=== PATIENT | male | born 1980 | race Caucasian/White ===

== ENCOUNTER 2021-11-07 14:04 | Observation (INO) | payer BC, SELFPAY ==
[2021-11-07] MEDS ORDERED: Fentanyl 100 MCG/2 ML VIAL ONE ×2 (14:31→18:08)
[2021-11-07] MEDS ORDERED: Ondansetron ODT 4 MG TAB PO PRN (15:13)
[2021-11-07] MEDS ORDERED: Cyclobenzaprine 10 MG TAB PO PRN (15:13)
[2021-11-07] MEDS ORDERED: traMADol HCl 50 MG TAB PO PRN (15:13)
[2021-11-07] MEDS ORDERED: Morphine 2 MG/ML VIAL SLOW IVP PRN (15:13)
[2021-11-07] MEDS ORDERED: fentaNYL Citrate/PF 100 MCG/2 ML SYRINGE ONE (15:51)
[2021-11-07] MEDS ORDERED: HYDROmorphone 0.5 MG/0.5 ML SYRINGE ONE (15:55)
[2021-11-07] MEDS ORDERED: Midazolam HCl 2 mg/2 ml Vial ONE (15:55)
[2021-11-07] MEDS ORDERED: Bupivacaine/Epinephrine 0.25% 30 ML VIAL ONE (15:57)
[2021-11-07] MEDS ORDERED: Dexamethasone 20 MG/5 ML VIAL ONE (16:25)
[2021-11-07] MEDS ORDERED: PROPOFOL 200 MG/20 ML VIAL ONE (16:25)
[2021-11-07] MEDS ORDERED: Rocuronium Bromide 10 MG/ML (10ML VIAL) ONE (16:25)
[2021-11-07] MEDS ORDERED: Lidocaine 1% MPF 2 ML VIAL ONE (16:25)
[2021-11-07] MEDS ORDERED: Ondansetron PF 4 MG/2 ML Vial ONE (16:25)
[2021-11-07] MEDS ORDERED: SUGAMMADEX SODIUM 200 MG/2 ML VIAL ONE (17:10)
[2021-11-07] MEDS ORDERED: TETANUS, DIPHTHERIA TOX,ADULT (TDVAX) 0.5 ML VIAL IM ONE (17:31)
[2021-11-07] MEDS ORDERED: Piperacillin/Tazobactam 3.375 GM in Sodium Chloride 0.9% 100 ML IVPB SCH (18:15)
[2021-11-07] MEDS ORDERED: Ketorolac Tromethamine 30 MG/ML VIAL ONE (20:05)
[2021-11-07] MEDS ORDERED: Acetaminophen 325 MG TAB ONE (20:05)
[2021-11-07] MEDS ORDERED: Piperacillin/Tazobactam 3.375 GM VIAL ONE (20:07)
[2021-11-07] MEDS ORDERED: Sodium Chloride 0.9% 100 ML ONE (20:08)
[2021-11-07] MEDS: Acetaminophen 325 MG TAB PO SCH (20:13)
[2021-11-07] MEDS: Ketorolac Tromethamine 30 MG/ML VIAL IVP SCH (20:14)
[2021-11-07] MEDS: Sodium Chloride 0.9% 1,000 ML IV SCH (20:15)
[2021-11-07] MEDS: traMADol HCl 50 MG TAB PO SCH (20:15)
[2021-11-07] MEDS ORDERED: Amoxicillin/Potassium Clav 875 MG TAB PO SCH (21:00)
[2021-11-07 21:52] VITALS: BMI 28.0
[2021-11-07] MEDS: Senokot S 8.6-50 MG TAB PO SCH (22:13)
[2021-11-07] MEDS: Piperacillin/Tazobactam 3.375 GM in Sodium Chloride 0.9% 100 ML IVPB SCH (22:14)
[2021-11-07] MEDS: Oxazepam 10 MG CAP PO SCH (22:14)
[2021-11-08] MEDS: Acetaminophen 325 MG TAB PO SCH ×2 (01:31→07:16)
[2021-11-08] MEDS: traMADol HCl 50 MG TAB PO SCH ×2 (01:32→07:16)
[2021-11-08] MEDS: Ketorolac Tromethamine 30 MG/ML VIAL IVP SCH ×2 (01:32→07:15)
[2021-11-08 01:38] VITALS: TEMP 97.8
[2021-11-08] MEDS: Sodium Chloride 0.9% 1,000 ML IV SCH (02:54)
[2021-11-08 06:16] LABS: Band 25 % (5-11); Hemoglobin 13.7 g/dL (14.0-18.0); Lymphocytes 6 % (21-51); MDiff Complete? YES; Mean Corpuscular HGB CONC 32.5 g/dL (32.0-36.0); Mean Corpuscular Hemoglobin 31.2 pg (27.0-31.0); Mean Platelet Volume 7.4 fL (7.4-10.4); Monocytes 3 % (0-10); Neutrophil 66 % (42-75); Platelet Count 227 thou/uL (130-400); RBC Distribution Width 11.9 % (11.5-14.5); Red Blood Cell (RBC) Count 4.39 mill/uL (4.70-6.10); White Blood Cell (WBC) Count 20.3 thou/uL (4.8-10.8)
[2021-11-08] MEDS: Piperacillin/Tazobactam 3.375 GM in Sodium Chloride 0.9% 100 ML IVPB SCH (06:24)
[2021-11-08] MEDS: Oxazepam 10 MG CAP PO SCH (06:26)
[2021-11-08 08:07] VITALS: BP 125/72
[2021-11-08] MEDS ORDERED: Multivitamin W/ Minerals 1 TAB PO SCH (09:00)
[2021-11-08] MEDS ORDERED: Saccharomyces boulardii 250 MG CAP PO SCH (09:00)
[2021-11-08] MEDS ORDERED: Thiamine 100 MG TAB PO SCH (09:00)
[2021-11-08] MEDS ORDERED: Polyethylene Glycol 3350 17 GM Packet PO SCH (09:00)
[2021-11-08] MEDS: Senokot S 8.6-50 MG TAB PO SCH (09:31)
== END 2021-11-08 11:25 | disposition home or self-care (01) ==
LOC: SDC 14:04 → SURG A 17:31
PROVIDERS: ADMIT Surgery; ATTEND Surgery
PROC: 0DTJ4ZZ Resection of Appendix, Percutaneous Endoscopic Approach (ICD-10-PCS; principal; 2021-11-07)
DX: K35.33 Acute appendicitis with perforation, localized peritonitis, and gangrene, with abscess (principal); K38.8 Other specified diseases of appendix; K66.0 Peritoneal adhesions (postprocedural) (postinfection); F17.210 Nicotine dependence, cigarettes, uncomplicated; Z79.899 Other long term (current) drug therapy
CPT/HCPCS: 36415; 85025; 88304; 90714; 96374; 96375; 96376; G0378; J1100; J1170; J1885; J2250; J2405; J2543; J2704; J3010; J3490